=== PATIENT | female | born 1990 ===

== ENCOUNTER 2020-10-27 12:45 | Inpatient (IN) | payer OTHER ==
[2020-10-27 13:45] LABS: BASO % 0.5 % (0-2.0); EOS % 0.9 % (0-4.5); HEMATOCRIT 34.3 % (32.4-45.2); HEMOGLOBIN 11.4 GM/dL (10.7-15.3); LYMPH % 16.7 % (8-40); MCH 28.2 pg (25.7-33.7); MCHC 33.3 g/dl (32.0-36.0); MEAN CELL VOLUME 84.6 fl (80-96); MEAN PLT VOLUME 8.4 fl (7.5-11.1); MONO % 7.8 % (3.8-10.2); NEUT % 74.1 % (42.8-82.8); PLATELET COUNT 199 10^3/uL (134-434); RBC 4.06 M/mm3 (3.60-5.2); RDW 14.9 % (11.6-15.6); WHITE BLOOD COUNT 7.9 K/mm3 (4.0-10.0)
[2020-10-27 13:53] LABS: INR 0.95 (0.83-1.09); PROTHROMBIN TIME (PATIENT) 11.7 SEC (9.7-13.0)
[2020-10-27 13:55] LABS: ACTIVATED PTT 27.4 SECONDS (25.2-36.5)
[2020-10-27 14:03] LABS: CALCIUM 8.6 mg/dL (8.5-10.1)
[2020-10-27 14:04] LABS: BLOOD UREA NITROGEN 9.3 mg/dL (7-18)
[2020-10-27 14:07] LABS: CREATININE 0.4 mg/dL (0.55-1.3)
[2020-10-27 14:34] VITALS: BMI 41.3
[2020-10-27 15:00] LABS: HIV INTERPRETATION NEGATIVE (NEGATIVE)
[2020-10-27] MEDS: MISOPROSTOL 100 MCG TABLET PV SCH ×2 (15:15→19:59)
[2020-10-27] MEDS ORDERED: DEXTROSE 5%-WATER - 1,000 ML IV SCH (20:00)
[2020-10-27] MEDS ORDERED: OXYTOCIN 30 UNITS in 0.9% NS 30 UNIT/500 ML INFUS.BAG IVPB SCH (20:00)
[2020-10-27] MEDS ORDERED: OXYTOCIN 30 UNITS in 0.9% NS 30 UNIT/500 ML INFUS.BAG IVPB ONE (20:12)
[2020-10-27] MEDS ORDERED: DEXTROSE 5%-LACTATED RINGERS 1,000 ML IV SCH (20:30)
[2020-10-27] MEDS ORDERED: PROMETHAZINE HCL 25 MG/1 ML VIAL IVPB ONE (22:46)
[2020-10-27] MEDS ORDERED: BUTORPHANOL TARTRATE 1 MG/ML VIAL IVPB ONE (22:46)
[2020-10-27] MEDS ORDERED: PENICILLIN G POTASSIUM 20,000,000 (20Mm) UNITS VIAL IVPB ONE (22:47)
[2020-10-27] MEDS ORDERED: BUTORPHANOL TARTRATE 2 MG/ML VIAL ONE (22:52)
[2020-10-27] MEDS ORDERED: PROMETHAZINE HCL 25 MG/1 ML VIAL ONE (22:52)
[2020-10-27] MEDS ORDERED: PENICILLIN G POTASSIUM 5,000,000 UNIT in DEXTROSE 5%-WATER 100 ML IVPB ONE (23:00)
[2020-10-28] MEDS: MISOPROSTOL 100 MCG TABLET PV SCH ×2 (00:26→05:16)
[2020-10-28] MEDS ORDERED: SODIUM CHLORIDE 1,000 ML IV STA (02:16)
[2020-10-28] MEDS ORDERED: PCA PUMP NR ONE (02:16)
[2020-10-28] MEDS ORDERED: BUPIVACAINE HCL/PF 0.25% (2.5MG/ML) 10 ML VIAL ONE (02:27)
[2020-10-28] MEDS ORDERED: FENTANYL/BUPIVACAINE/NS/PF - PCEA - 50 ML DISP.SYRIN EP ONE (02:28)
[2020-10-28] MEDS ORDERED: NALOXONE HCL 0.4 MG/ML VIAL IVPUSH PRN (02:48)
[2020-10-28] MEDS ORDERED: FENTANYL/BUPIVACAINE/NS/PF - PCEA - 50 ML DISP.SYRIN EP SCH (03:00)
[2020-10-28] MEDS: PENICILLIN G POTASSIUM 2,500,000 UNIT in DEXTROSE 5%-WATER 100 ML IVPB SCH (03:15)
[2020-10-28] MEDS ORDERED: LIDOCAINE HCL 1% PRESERVATIVE FREE - 30ML VIAL ONE ×2 (03:40→03:52)
[2020-10-28] MEDS ORDERED: OXYTOCIN 20 UNITS in 0.9% NS 20 UNIT/1,000 ML INFUS.BAG IV ONE (03:40)
[2020-10-28] MEDS ORDERED: OXYTOCIN 20 UNITS in 0.9% NS 1000 ML INFUS.BAG IV ONE (04:39)
[2020-10-28] MEDS ORDERED: BISACODYL 10 MG SUPP.RECT RC PRN (04:40)
[2020-10-28] MEDS ORDERED: BENZOCAINE 20% 57 GM BOTTLE TP PRN (04:40)
[2020-10-28] MEDS ORDERED: BENZOCAINE 28 GM HEMORRHOIDAL OINTMENT TP PRN (04:40)
[2020-10-28] MEDS ORDERED: ACETAMINOPHEN 325 MG TABLET (FP) PO PRN (04:40)
[2020-10-28] MEDS ORDERED: WITCH HAZEL 50% (TUCKS) 40 PAD/JAR PAD TP PRN (04:40)
[2020-10-28] MEDS ORDERED: D5W-LR W/ 20 UNITS OXYTOCIN 20 UNIT/1,000 ML INFUS.BAG IV SCH (04:45)
[2020-10-28 06:27] LABS: CORD PCO2 49.6 mmHg (30-78); CORD pH 7.284 (7.14-7.44)
[2020-10-28] MEDS: PRENATAL VITAMINS W/ FOLIC ACID TABLET (FP) PO SCH (09:25)
[2020-10-28] MEDS: IBUPROFEN 600 MG TABLET (FP) PO PRN (09:25)
[2020-10-29] MEDS: IBUPROFEN 600 MG TABLET (FP) PO PRN (02:24)
[2020-10-29] MEDS: MISOPROSTOL 100 MCG TABLET PV SCH (06:53)
[2020-10-29] MEDS: PENICILLIN G POTASSIUM 2,500,000 UNIT in DEXTROSE 5%-WATER 100 ML IVPB SCH (06:53)
[2020-10-29 08:58] LABS: BASO % 0.6 % (0-2.0); EOS % 2.2 % (0-4.5); HEMATOCRIT 35.1 % (32.4-45.2); LYMPH % 26.8 % (8-40); MCH 29.1 pg (25.7-33.7); MCHC 34.1 g/dl (32.0-36.0); MEAN CELL VOLUME 85.3 fl (80-96); MEAN PLT VOLUME 8.5 fl (7.5-11.1); MONO % 6.1 % (3.8-10.2); NEUT % 64.3 % (42.8-82.8); PLATELET COUNT 172 10^3/uL (134-434); RBC 4.11 M/mm3 (3.60-5.2); RDW 15.5 % (11.6-15.6); WHITE BLOOD COUNT 7.1 K/mm3 (4.0-10.0)
[2020-10-29] MEDS: PRENATAL VITAMINS W/ FOLIC ACID TABLET (FP) PO SCH (10:25)
[2020-10-30] MEDS: PRENATAL VITAMINS W/ FOLIC ACID TABLET (FP) PO SCH (09:05)
[2020-10-30 09:59] VITALS: BP 116/76; PULSE 71; TEMP 98.1
== END 2020-10-30 12:35 | disposition home or self-care (01) | DRG 560 ==
LOC: JLDR 12:45 → J3W 10-28 05:56
PROVIDERS: ADMIT Obstetrics & Gynecology Maternal & Fetal Medicine; ATTEND Obstetrics & Gynecology Maternal & Fetal Medicine
PROC: 3E0DXGC Introduction of Other Therapeutic Substance into Mouth and Pharynx, External Approach (ICD-10-PCS; 2020-10-27)
PROC: 3E033VJ Introduction of Other Hormone into Peripheral Vein, Percutaneous Approach (ICD-10-PCS; 2020-10-27)
PROC: 10E0XZZ Delivery of Products of Conception, External Approach (ICD-10-PCS; principal; 2020-10-28)
PROC: 0HQ9XZZ Repair Perineum Skin, External Approach (ICD-10-PCS; 2020-10-28)
DX: O36.5930 Maternal care for other known or suspected poor fetal growth, third trimester, not applicable or unspecified (principal); O41.03X0 Oligohydramnios, third trimester, not applicable or unspecified; O99.214 Obesity complicating childbirth; E66.01 Morbid (severe) obesity due to excess calories; O70.0 First degree perineal laceration during delivery; Z3A.39 39 weeks gestation of pregnancy; Z37.0 Single live birth
CPT/HCPCS: 36415; 36600; 59409; 80048; 82803; 85025; 85610; 85730; 86780; 86850; 86870; 86900; 86901; 86902; 87389; 88307-TC

== ENCOUNTER 2023-04-22 17:45 | Inpatient (IN) | payer OTHER ==
[2023-04-22 18:59] VITALS: BMI 42.3
[2023-04-22] MEDS: SODIUM CHLORIDE 500 ML IV STA (19:00)
[2023-04-22 19:35] LABS: BASO % 0.3 % (0-2.0); EOS % 0.9 % (0-4.5); HEMATOCRIT 30.3 % (32.4-45.2); HEMOGLOBIN 9.9 GM/dL (10.7-15.3); LYMPH % 22.8 % (8-40); MCH 25.1 pg (25.7-33.7); MCHC 32.6 g/dl (32.0-36.0); MEAN CELL VOLUME 77.1 fl (80-96); MEAN PLT VOLUME 8.5 fl (7.5-11.1); MONO % 7.3 % (3.8-10.2); NEUT % 68.7 % (42.8-82.8); PLATELET COUNT 228 10^3/uL (134-434); RBC 3.93 M/mm3 (3.60-5.2); RDW 15.6 % (11.6-15.6); WHITE BLOOD COUNT 10.4 K/mm3 (4.0-10.0)
[2023-04-22] MEDS: DEXTROSE 5%-LACTATED RINGERS 1,000 ML IV SCH (19:35)
[2023-04-22 19:49] LABS: INR 0.97 (0.83-1.09); PROTHROMBIN TIME (PATIENT) 11.2 SEC (9.7-13.0)
[2023-04-22 19:52] LABS: ACTIVATED PTT 24.9 SECONDS (25.2-36.5)
[2023-04-22 19:53] LABS: POTASSIUM 4.5 mmol/L (3.5-5.1)
[2023-04-22 19:54] LABS: CALCIUM 8.2 mg/dL (8.5-10.1)
[2023-04-22 19:55] LABS: BLOOD UREA NITROGEN 11.2 mg/dL (7-18)
[2023-04-22 19:58] LABS: CREATININE 0.5 mg/dL (0.55-1.3)
[2023-04-22] MEDS: MISOPROSTOL 100 MCG TABLET PV SCH (20:41)
[2023-04-23] MEDS ORDERED: morphine CARPU-JECT 8 MG/1 ML DISP.SYRIN IVPB ONE (03:38)
[2023-04-23] MEDS: SODIUM CHLORIDE 1,000 ML IV STA (03:50)
[2023-04-23] MEDS ORDERED: FENTANYL/BUPIVACAINE/NS/PF - PCEA - 50 ML DISP.SYRIN EP ONE (03:50)
[2023-04-23] MEDS: FENTANYL/BUPIVACAINE/NS/PF - PCEA - 50 ML DISP.SYRIN EP SCH (03:57)
[2023-04-23] MEDS ORDERED: NALOXONE HCL 0.4 MG/ML VIAL IVPUSH PRN (04:15)
[2023-04-23] MEDS ORDERED: OXYTOCIN 20 UNITS in 0.9% NS 20 UNIT/1,000 ML INFUS.BAG IV ONE (05:50)
[2023-04-23] MEDS ORDERED: LIDOCAINE HCL 1% PRESERVATIVE FREE - 30ML VIAL ONE (05:50)
[2023-04-23] MEDS: OXYTOCIN 20 UNITS in 0.9% NS 20 UNIT/1,000 ML INFUS.BAG IV SCH (06:10)
[2023-04-23] MEDS ORDERED: ACETAMINOPHEN 325 MG TABLET (FP) PO PRN (06:18)
[2023-04-23] MEDS ORDERED: WITCH HAZEL 50% (TUCKS) 40 PAD/JAR PAD TP PRN (06:18)
[2023-04-23] MEDS ORDERED: BENZOCAINE 28 GM HEMORRHOIDAL OINTMENT TP PRN (06:18)
[2023-04-23] MEDS ORDERED: DEXTROSE 5%-LACTATED RINGERS 1,000 ML IV SCH (06:30)
[2023-04-23 07:24] LABS: CORD BASE EXCESS -2.1 mmol/L (0-2); CORD HCO3 23.5 mmHg (20-29); CORD PCO2 43.3 mmHg (30-78); CORD pH 7.353 (7.14-7.44)
[2023-04-23] MEDS: FERROUS SO4 325 MG TABLET (FP) PO SCH (09:41)
[2023-04-23] MEDS: IBUPROFEN 600 MG TABLET (FP) PO PRN (09:41)
[2023-04-23] MEDS: PRENATAL VITAMINS W/ FOLIC ACID TABLET (FP) PO SCH (09:41)
[2023-04-24 03:44] VITALS: RESP 18
[2023-04-24 09:24] LABS: BASO % 0.2 % (0-2.0); EOS % 1.7 % (0-4.5); HEMATOCRIT 28.5 % (32.4-45.2); HEMOGLOBIN 9.4 GM/dL (10.7-15.3); LYMPH % 19.7 % (8-40); MCH 25.2 pg (25.7-33.7); MEAN CELL VOLUME 76.4 fl (80-96); MEAN PLT VOLUME 8.6 fl (7.5-11.1); MONO % 6.6 % (3.8-10.2); NEUT % 71.8 % (42.8-82.8); PLATELET COUNT 180 10^3/uL (134-434); RBC 3.73 M/mm3 (3.60-5.2)
[2023-04-25 10:20] VITALS: BP 113/76; PULSE 85; TEMP 98.6
== END 2023-04-25 14:33 | disposition home or self-care (01) | DRG 560 ==
LOC: JLDR 17:45 → J3W 04-23 08:20
PROVIDERS: ADMIT Obstetrics & Gynecology Maternal & Fetal Medicine; ATTEND Obstetrics & Gynecology Maternal & Fetal Medicine
PROC: 10E0XZZ Delivery of Products of Conception, External Approach (ICD-10-PCS; principal; 2023-04-23)
DX: O41.03X0 Oligohydramnios, third trimester, not applicable or unspecified (principal); O69.81X0 Labor and delivery complicated by cord around neck, without compression, not applicable or unspecified; O99.12 Other diseases of the blood and blood-forming organs and certain disorders involving the immune mechanism complicating childbirth; D68.59 Other primary thrombophilia; Z3A.39 39 weeks gestation of pregnancy; Z37.0 Single live birth
CPT/HCPCS: 36415; 36600; 80048; 82803; 85025; 85610; 85730; 86780; 86850; 86870; 86880; 86900; 86901; 86902; 88307-TC